=== PATIENT | male | born 1960 | race Caucasian/White ===

== ENCOUNTER → 2016-10-05 | Day surgery (SDC) | payer MEDICARE ==
[~2016-10-05] VITALS: Ht 172.7 cm; Wt 95.3 kg
[~2016-10-05] MED LIST: /LANS30GR; /LANS30GR OR; ACET-71 PO; ALEVE; ALEVE OR; BUPIVACAINE HCL 0.25% 10 ML VIAL As Ordered ONE; BUPIVACAINE HCL 0.25% 30 ML VIAL As Ordered ONE; DARV100T; DARV100T OR; DESFLURANE 240 ML INHALANT As Ordered ONE; FLECTOR1.3 TOP; GABA300T OR; GLYCOPYRROLATE INJ 0.2 MG/ML 2 ML VIAL As Ordered ONE; KETOROLAC 60 MG/2 ML VIAL (J1885) As Ordered ONE; LIDOCAINE 1% SDV INJ 30 ML VIAL As Ordered ONE; LIDOCAINE 2% INJ 100 MG/5 ML SDV (FOR ANES.) As Ordered ONE; LR 1,000 ML IV SCH; METOCLOPRAMIDE INJ 10MG/2ML VIAL (J2765) As Ordered ONE; METOCLOPRAMIDE INJ 10MG/2ML VIAL (J2765) IV PRN; MIDAZOLAM INJ 2 MG/2 ML VIAL (J2250) As Ordered ONE; NORCO, ANEXSIA 5/325MG TABLET (HYDROcodone/ACETAMINOPHEN) PO PRN; ONDANSETRON 4MG/2ML VIAL (J2405) As Ordered ONE; ONDANSETRON 4MG/2ML VIAL (J2405) IV PRN; PENNSAID DROPS EXT; PERCOCET 5MG/325MG TAB PO PRN; PREV30CA11 PO; PROMETHAZINE INJ 25 MG/ML VIAL (J2550) IV PRN; PROPOFOL 200 MG/20 ML VIAL As Ordered ONE; TRAM100T OR; aleve PO; ePHEDrine SULFATE 25 MG/5 ML(5MG/ML) SYRINGE As Ordered ONE; fentaNYL 100 MCG/2 ML INJECTION (J3010) As Ordered ONE; fentaNYL 100 MCG/2 ML INJECTION (J3010) IV PRN; fentaNYL 250 MCG/5 ML INJECTION (J3010) As Ordered ONE
[2016-10-05 13:45] VITALS: BP 121/80
--- NOTE | 2016-10-05 23:55 | RO ---
DATE OF PROCEDURE: 10/05/2016 PREOPERATIVE DIAGNOSIS: Bilateral recurrent inguinal hernias. POSTOPERATIVE DIAGNOSIS: Bilateral recurrent inguinal hernias. PROCEDURE PERFORMED: Repair of bilateral recurrent inguinal hernias with mesh. SURGEON: Dr. Santiago Pinto SOLDERER TORCH: Brenna Phan ANESTHESIA: General. INDICATIONS FOR PROCEDURE: The patient is a 55-year-old man who had undergone bilateral inguinal hernias as a young child. He has recently noticed a bulge in the right inguinal area. Inspection identified bilateral inguinal hernias with the right larger than the left. He is now for bilateral inguinal herniorrhaphy. DESCRIPTION OF PROCEDURE: The patient was placed supine on the operating table. The lower abdomen had been clipped of hair previously. He was placed under general anesthesia using an LMA. The patient's abdomen, groins and genitalia were prepped and draped in a sterile fashion. Inspection revealed faint bilateral lower abdominal scars consistent with prior inguinal hernia repairs. Attention was turned to the right side first, which had been his symptomatic side. An approximately 8-10 cm oblique skin incision was made in the right lower quadrant overlying the inguinal canal. The incision was deepened through the subcutaneous tissues with care to ensure hemostasis with the cautery. The external oblique aponeurosis was identified and was opened in the direction of its fibers. A few permanent sutures were identified in the external oblique near the external ring. The spermatic cord was isolated at the pubic tubercle and elevated with a [place] drain. The patient was found to have a moderate-sized direct hernia in the lateral aspect of the inguinal floor. This was dissected free from the overlying spermatic cord. The hernia was reduced and several sutures of #2-0 Ethibond were placed to close the defect in the inguinal floor and maintain reduction of the hernia. A 6 x 11 cm piece of Ultrapro mesh was then selected. This was trimmed to fit the inguinal floor. The mesh was sutured along its lateral border to the shelving edge of the inguinal ligament using a #3-0 Prolene. The medial portion of the mesh was tacked down with multiple interrupted simple sutures of #3-0 Vicryl. The tails of the mesh were overlapped lateral to the spermatic cord also using #3-0 Vicryl. This appeared to give a nice reconstruction of the inguinal floor. Approximately 10 mL of 0.25% Marcaine were infiltrated into the inguinal floor. The external oblique was closed with a running suture of #0 Vicryl. Another 10 mL of 0.25% Marcaine were infiltrated into the subcutaneous tissues along the incision. The subcutaneous tissues were closed with chromic and the skin edges with a running subcuticular #4-0 Vicryl. Attention was then turned to the left side. A mirror image incision was made. The external oblique was opened. The patient was noted again to have a small direct hernia without evidence of an indirect hernia. The inguinal floor was closed with #2-0 Vicryl and a piece of 6 x 11 cm Ultrapro was used to reconstruct the inguinal floor as noted on the right. Marcaine was infiltrated as on the right and the external oblique was closed with a running #0 Vicryl. Additional Marcaine was infiltrated into the subcutaneous tissues, and the wound was closed with buried chromic and a running subcuticular Vicryl. Steri-Strips were applied to both incisions. The patient tolerated the procedure well without apparent complication. The patient was awakened in the operating room and extubated and moved to the recovery room in stable condition. NETO
== END | disposition home or self-care (01) ==
LOC: M SDC 07:02
PROVIDERS: ATTEND Surgery
DX: K40.21 Bilateral inguinal hernia, without obstruction or gangrene, recurrent (principal); K21.9 Gastro-esophageal reflux disease without esophagitis; K57.32 Diverticulitis of large intestine without perforation or abscess without bleeding; Z79.899 Other long term (current) drug therapy
CPT/HCPCS: 49520; C1781; J1885; J2250; J2405; J2765; J3010

== ENCOUNTER → 2017-01-25 | Outpatient (CLI) | payer MEDICARE ==
[~2017-01-25] MED LIST changes: -ACET-71 PO; +ACET1TAB16 PO; -BUPIVACAINE HCL 0.25% 10 ML VIAL As Ordered ONE; -BUPIVACAINE HCL 0.25% 30 ML VIAL As Ordered ONE; -DESFLURANE 240 ML INHALANT As Ordered ONE; -GLYCOPYRROLATE INJ 0.2 MG/ML 2 ML VIAL As Ordered ONE; -KETOROLAC 60 MG/2 ML VIAL (J1885) As Ordered ONE; -LIDOCAINE 1% SDV INJ 30 ML VIAL As Ordered ONE; -LIDOCAINE 2% INJ 100 MG/5 ML SDV (FOR ANES.) As Ordered ONE; -LR 1,000 ML IV SCH; -METOCLOPRAMIDE INJ 10MG/2ML VIAL (J2765) As Ordered ONE; -METOCLOPRAMIDE INJ 10MG/2ML VIAL (J2765) IV PRN; -MIDAZOLAM INJ 2 MG/2 ML VIAL (J2250) As Ordered ONE; -NORCO, ANEXSIA 5/325MG TABLET (HYDROcodone/ACETAMINOPHEN) PO PRN; -ONDANSETRON 4MG/2ML VIAL (J2405) As Ordered ONE; -ONDANSETRON 4MG/2ML VIAL (J2405) IV PRN; -PERCOCET 5MG/325MG TAB PO PRN; +PREV1CAP PO; -PREV30CA11 PO; -PROMETHAZINE INJ 25 MG/ML VIAL (J2550) IV PRN; -PROPOFOL 200 MG/20 ML VIAL As Ordered ONE; -ePHEDrine SULFATE 25 MG/5 ML(5MG/ML) SYRINGE As Ordered ONE; -fentaNYL 100 MCG/2 ML INJECTION (J3010) As Ordered ONE; -fentaNYL 100 MCG/2 ML INJECTION (J3010) IV PRN; -fentaNYL 250 MCG/5 ML INJECTION (J3010) As Ordered ONE
--- NOTE | 2017-01-25 21:54 | ECGEPIP ---
Stationary ECG Study [facility] Test Date: 2017-01-25 Pat Name: ANASTASIYA SAMUELS Department: Room: - Gender: M Client Liaison: : 1960 Requested By: MACEY Evans Order Number: [id number] Reading MD: Shane Albert Measurements Intervals [place] Rate: 47 P: 49 MD: 167 QRS: -42 QRSD: 101 T: 8 QT: 445 QTc: 394 Interpretive Statements SINUS BRADYCARDIA MARKED LEFT AXIS DEVIATION POSSIBLE RIGHT VENTRICULAR CONDUCTION DELAY ST ELEVATION, CONSIDER SEPTAL INJURY Consider STEMI Comparison tracing not on file Electronically Signed On 01-25-2017 21:54:21 EDT by Shane Albert
== END ==
LOC: M EKG 14:49
PROVIDERS: ATTEND Anesthesiology
DX: Z01.818 Encounter for other preprocedural examination (principal)

== ENCOUNTER → 2017-06-06 | Outpatient (REF) | payer MEDICARE ==
[2017-06-06 11:23] LABS: MEAN CORPUSCULAR HEMOGLOBIN 30.4 pg (27.0-33.0); MEAN CORPUSCULAR HGB CONC 33.8 g/dl (32.0-36.5); MEAN CORPUSCULAR VOLUME 89.9 fl (80.0-96.0); PLATELET COUNT, AUTOMATED 223 10^3/uL (150-450); RED CELL DISTRIBUTION WIDTH 12.4 % (11.5-14.5); WHITE BLOOD COUNT 8.7 10^3/uL (4.0-10.0)
[2017-06-06 11:40] LABS: INR 1.03
== END ==
LOC: M SFHCCLAY 08:28
PROVIDERS: ATTEND Family Medicine
DX: Z01.818 Encounter for other preprocedural examination (principal); H74.22 Discontinuity and dislocation of left ear ossicles
CPT/HCPCS: 85027; 85610; G0463

== ENCOUNTER 2017-06-15 07:20 | Day surgery (SDC) | payer MEDICARE ==
[~2017-06-15] VITALS: Ht 172.7 cm; Wt 95.0 kg
[2017-06-15] MEDS ORDERED: LR 1,000 ML IV ONE (07:30)
[2017-06-15] MEDS ORDERED: PROPOFOL 200 MG/20 ML VIAL As Ordered ONE (08:09)
[2017-06-15] MEDS ORDERED: ROCURONIUM BROMIDE 50 MG/5 ML VIAL As Ordered ONE (08:09)
[2017-06-15] MEDS ORDERED: dexameTHASONE 4 MG/ML 1ML VIAL (J1100) As Ordered ONE (08:09)
[2017-06-15] MEDS ORDERED: ONDANSETRON 4MG/2ML VIAL (J2405) As Ordered ONE (08:09)
[2017-06-15] MEDS ORDERED: LIDOCAINE 2% INJ 100 MG/5 ML SDV (FOR ANES.) As Ordered ONE (08:09)
[2017-06-15] MEDS ORDERED: MIDAZOLAM INJ 2 MG/2 ML VIAL (J2250) As Ordered ONE (08:10)
[2017-06-15] MEDS ORDERED: fentaNYL 250 MCG/5 ML INJECTION (J3010) As Ordered ONE (08:10)
[2017-06-15] MEDS ORDERED: LIDOCAINE W/EPINEPHRINE 1% 20ML VIAL As Ordered ONE (08:53)
[2017-06-15] MEDS ORDERED: CIPRODEX OTIC SUSP 7.5ML As Ordered ONE (08:53)
[2017-06-15] MEDS ORDERED: EPINEPHrine 1MG/ML INJ 30ML MD-VIAL As Ordered ONE (09:54)
[2017-06-15] MEDS ORDERED: GLYCOPYRROLATE INJ 0.2 MG/ML 2 ML VIAL As Ordered ONE (10:10)
[2017-06-15] MEDS ORDERED: NEOSTIGMINE 10 MG/10 ML VIAL (J2710) As Ordered ONE (10:10)
[2017-06-15] MEDS ORDERED: LR 1,000 ML IV SCH ×2 (10:45)
[2017-06-15] MEDS ORDERED: MORPHINE 10 MG/ML 1ML VIAL IV PRN (10:45)
[2017-06-15] MEDS ORDERED: ACETAMINOPH W/CODEINE #3 TAB UD PO PRN (10:45)
[2017-06-15] MEDS ORDERED: fentaNYL 100 MCG/2 ML INJECTION (J3010) IV PRN (10:45)
[2017-06-15] MEDS ORDERED: PERCOCET 5MG/325MG TAB PO PRN (10:45)
[2017-06-15] MEDS ORDERED: ONDANSETRON 4MG/2ML VIAL (J2405) IV PRN (10:45)
[2017-06-15 11:25] VITALS: BP 128/85
--- NOTE | 2017-06-15 11:42 | RO ---
DATE OF PROCEDURE: 06/15/2017 PREOPERATIVE DIAGNOSIS: Left conductive hearing loss. POSTOPERATIVE DIAGNOSIS: Left conductive hearing loss. OPERATIVE PROCEDURE: Left tympanotomy. SURGEON: Marlo Sharif MD CONTENT STRATEGIST: ANESTHESIA: FINDINGS OF SURGERY: There was scarring tissue within the middle ear space, completely obliterating it. There was bone hypertrophy in the middle ear space in the canal. This made any ossicular reconstruction impossible. I did clean out the area a bit. The cartilage was still intact. Under general anesthesia with the patient intubated, the patient was draped in the usual manner. I infiltrated the ear with lidocaine and epinephrine. A made a posterior tympanotomy flap and elevated the tissue. There was a lot of scar tissue within the middle ear space. I debrided some of this tissue. After this, I decided to do nothing further. I put iodoform gauze in the canal. The patient tolerated the procedure well and was extubated and transported to the recovery room in excellent condition.
== END 2017-06-15 11:44 | disposition home or self-care (01) ==
LOC: M SDC 07:20
PROVIDERS: ATTEND Otolaryngology
DX: H90.12 Conductive hearing loss, unilateral, left ear, with unrestricted hearing on the contralateral side (principal); H74.22 Discontinuity and dislocation of left ear ossicles; I10 Essential (primary) hypertension; K21.9 Gastro-esophageal reflux disease without esophagitis; M19.90 Unspecified osteoarthritis, unspecified site; R94.31 Abnormal electrocardiogram [ECG] [EKG]; K58.9 Irritable bowel syndrome, unspecified; I77.810 Thoracic aortic ectasia; M54.9 Dorsalgia, unspecified; J30.9 Allergic rhinitis, unspecified; K57.90 Diverticulosis of intestine, part unspecified, without perforation or abscess without bleeding; Z79.899 Other long term (current) drug therapy; Z91.02 Food additives allergy status
CPT/HCPCS: 69421; J1100; J2250; J2405; J2710; J3010

== ENCOUNTER → 2018-10-20 | Outpatient (REF) | payer MEDICARE | LOC: M LAB REF 12:28 | PROVIDERS: ATTEND Internal Medicine | DX: D37.8 Neoplasm of uncertain behavior of other specified digestive organs (principal) ==

== ENCOUNTER 2018-12-05 06:30 | Day surgery (SDC) | payer MEDICARE ==
[~2018-12-05] VITALS: Ht 172.7 cm; Wt 95.3 kg
[~2018-12-05 06:30] MED LIST changes: +LOSA50TA88 PO; +NS 1,000 ML IV ONE
[2018-12-05] MEDS ORDERED: PROPOFOL 200 MG/20 ML VIAL As Ordered ONE (07:05)
[2018-12-05 09:05] VITALS: BP 118/85
--- NOTE | 2018-12-05 09:41 | ROOR ---
Patient Name: Kevin Post Procedure Date: 12/05/2018 8:18 AM Date of : 1960 Age: 57 Room: [facility] Gender: Male Note Status: Finalized Procedure: Colonoscopy Indications: Screening for colorectal malignant neoplasm, Last colonoscopy: 2008 Providers: Santiago Pinto MD Referring MD: Venita Cosme DO Requesting Provider: Medicines: Monitored Anesthesia Care Complications: No immediate complications. Procedure: Pre-Anesthesia Assessment: - Prior to the procedure, a History and Physical was performed, and patient medications and allergies were reviewed. The patient is competent. The risks and benefits of the procedure and the sedation options and risks were discussed with the patient. All questions were answered and informed consent was obtained. Patient identification and proposed procedure were verified by the physician, the nurse and the anesthesiologist in the procedure room. Mental Status Examination: alert and oriented. Airway Examination: normal oropharyngeal airway and neck mobility. CV Examination: regular rate and rhythm. Prophylactic Antibiotics: The patient does not require prophylactic antibiotics. Prior Anticoagulants: The patient has taken no previous anticoagulant or antiplatelet agents. ASA Grade Assessment: II - A patient with mild systemic disease. After reviewing the risks and benefits, the patient was deemed in satisfactory condition to undergo the procedure. The anesthesia plan was to use monitored anesthesia care (MAC). Immediately prior to administration of medications, the patient was re-assessed for adequacy to receive sedatives. The heart rate, respiratory rate, oxygen saturations, blood pressure, adequacy of pulmonary ventilation, and response to care were monitored throughout the procedure. The physical status of the patient was re-assessed after the procedure. The Colonoscope was introduced through the anus and advanced to the cecum, identified by appendiceal orifice and ileocecal valve. The colonoscopy was performed without difficulty. The patient tolerated the procedure well. The quality of the bowel preparation was excellent. Findings: The perianal and digital rectal examinations were normal. Many small and large-mouthed diverticula were found in the entire colon. There was evidence of a prior end-to-end colo-rectal anastomosis in the recto-sigmoid colon. This was patent and was characterized by healthy appearing mucosa. The anastomosis was traversed. Anastomosis lay at 18 cm from anal verge. Impression: - Diverticulosis in the entire examined colon. - Patent end-to-end colo-rectal anastomosis, characterized by healthy appearing mucosa. - No specimens collected. Recommendation: - Discharge patient to home. - Resume previous diet. - Continue present medications. - Repeat colonoscopy in 10 years for screening purposes. - Return to endoscopist PRN. Santiago Pinto MD Santiago Pinto MD 12/05/2018 9:41:18 AM Electronically signed by Santiago Pinto MD Number of Addenda: 0 Note Initiated On: 12/05/2018 8:18 AM Estimated Blood Loss: Estimated blood loss: none.
== END 2018-12-05 09:45 | disposition home or self-care (01) ==
LOC: M OPP 06:30
PROVIDERS: ATTEND Surgery
DX: K57.30 Diverticulosis of large intestine without perforation or abscess without bleeding (principal); Z98.0 Intestinal bypass and anastomosis status; Z12.11 Encounter for screening for malignant neoplasm of colon

== ENCOUNTER → 2019-07-03 | Outpatient (CLI) | payer MEDICARE ==
[~2019-07-03] MED LIST changes: -NS 1,000 ML IV ONE
[2019-07-03 09:32] LABS: BLOOD UREA NITROGEN 16 MG/DL (7-18); CALCIUM LEVEL 9.6 MG/DL (8.5-10.1); CARBON DIOXIDE LEVEL 28 MEQ/L (21-32); CHLORIDE LEVEL 102 MEQ/L (98-107); CREATININE FOR GFR 1.25 MG/DL (0.70-1.30); GLOMERULAR FILTRATION RATE > 60.0 (>56); GLUCOSE, FASTING 78 MG/DL (70-100); POTASSIUM SERUM 4.6 MEQ/L (3.5-5.1); SODIUM LEVEL 136 MEQ/L (136-145)
== END ==
LOC: M LAB 08:12
PROVIDERS: ATTEND Surgery
DX: D37.1 Neoplasm of uncertain behavior of stomach (principal); D37.5 Neoplasm of uncertain behavior of rectum; D37.8 Neoplasm of uncertain behavior of other specified digestive organs

== ENCOUNTER → 2019-09-25 | Outpatient (REF) | payer MEDICARE ==
[2019-09-26 09:36] LABS: HEPATITIS A ANTIBODY IGM NEGATIVE (NEGATIVE); HEPATITIS B CORE ANTIBODY IGM NEGATIVE (NEGATIVE); HEPATITIS B SURFACE ANTIGEN NEGATIVE (NEGATIVE); HEPATITIS C VIRUS ABY INDEX 0.1 INDEX (<0.8)
== END ==
LOC: M LAB REF 12:09
PROVIDERS: ATTEND Internal Medicine
DX: Z01.89 Encounter for other specified special examinations (principal); L81.8 Other specified disorders of pigmentation

== ENCOUNTER 2019-12-24 05:56 | Emergency (ER) | payer MEDICARE ==
[~2019-12-24] VITALS: Ht 172.7 cm; Wt 100.0 kg
[2019-12-24] MEDS ORDERED: LIDOCAINE 1% MDV 20ML VIAL INFIL ONE (07:00)
[2019-12-24] MEDS ORDERED: BOOSTRIX/ADACEL VACCINE (DIPHTH/PERTUSS/ACELL/TETANUS) 0.5ML SYR IM ONE (07:00)
[2019-12-24] MEDS ORDERED: KEFL500C17 PO (07:37)
[2019-12-24 07:41] VITALS: BP 144/93
== END 2019-12-24 07:42 | disposition home or self-care (01) ==
LOC: M ED 05:56
DX: L98.9 Disorder of the skin and subcutaneous tissue, unspecified (principal); I10 Essential (primary) hypertension; Z91.048 Other nonmedicinal substance allergy status

== ENCOUNTER → 2020-01-10 | Outpatient (CLI) | payer MEDICARE ==
[~2020-01-10] MED LIST changes: +HYDR12CA PO; +KEFL500C17 PO; +LANS15CA23 PO
[2020-01-10 14:03] LABS: BLOOD UREA NITROGEN 21 MG/DL (7-18); CREATININE FOR GFR 1.27 MG/DL (0.70-1.30); GLOMERULAR FILTRATION RATE > 60.0 (>56)
== END ==
LOC: M LAB 12:47
PROVIDERS: ATTEND Physician Assistant Medical
DX: S61.021A Laceration with foreign body of right thumb without damage to nail, initial encounter (principal); X58.XXXA Exposure to other specified factors, initial encounter; Y92.89 Other specified places as the place of occurrence of the external cause

== ENCOUNTER → 2020-01-31 | Outpatient (CLI) | payer MEDICARE ==
--- NOTE | 2020-03-21 10:36 | REP ---
ULTRASOUND OF THE RIGHT THUMB FOR FOREIGN BODY Delay in reporting results from malfunction of the hospital computer system as the result of a malware attack. This study is performed for a right thumb laceration with possible foreign body. FINDINGS: By ultrasound, there is a linear echogenic focus within the subcutaneous tissues of the right thumb measuring 2.4 x 5.1 x 0.8 mm compatible with a foreign body. Images with color Doppler demonstrate no hyperemia surrounding this foreign body at the time of scanning. There is a technology sales representative image of the left thumb demonstrating no foreign body. IMPRESSION: Linear subcutaneous foreign body as described. MTDD
== END ==
LOC: M WHC 11:21
PROVIDERS: ATTEND Physician Assistant Medical
DX: S61.021A Laceration with foreign body of right thumb without damage to nail, initial encounter (principal); X58.XXXA Exposure to other specified factors, initial encounter; Y92.89 Other specified places as the place of occurrence of the external cause; Y93.9 Activity, unspecified; Y99.9 Unspecified external cause status; M79.642 Pain in left hand

== ENCOUNTER → 2020-03-04 | Outpatient (CLI) | payer MEDICARE ==
--- NOTE | 2020-03-25 12:06 | ECGEPIP ---
[facility] Test Date: 2020-03-04 Pat Name: ANASTASIYA SAMUELS Department: Room: - Gender: Male Director Physical Therapy: CARYN : 1960 Requested By: Jaguar Olson Order Number: [id number] Reading MD: Shane Mcginnis Measurements Intervals [place] Rate: 78 P: 53 AR: 177 QRS: -68 QRSD: 92 T: 29 QT: 380 QTc: 434 Interpretive Statements SINUS RHYTHM MARKED LEFT AXIS DEVIATION PATTERN CONSISTENT WITH PULMONARY DISEASE ABNORMAL ECG SEE SCANNED DOWNTIME REPORT
== END ==
LOC: M EKG 13:23
PROVIDERS: ATTEND Orthopaedic Surgery
DX: Z01.818 Encounter for other preprocedural examination (principal)

== ENCOUNTER → 2020-03-06 | Outpatient (CLI) | payer MEDICARE | LOC: M LABSMTC 12:47 | PROVIDERS: ATTEND Orthopaedic Surgery | DX: Z20.828 Contact with and (suspected) exposure to other viral communicable diseases (principal) ==

== ENCOUNTER 2020-05-08 14:28 | Observation (INO) | payer MEDICARE ==
[~2020-05-08] VITALS: Ht 175.3 cm; Wt 100.6 kg
[~2020-05-08 14:28] MED LIST changes: -HYDR12CA PO; -LANS15CA23 PO
[2020-05-08] MEDS ORDERED: ASPIRIN 81 MG CHEW TABLET PO ONE (15:00)
[2020-05-08] MEDS: NITROGLYCERIN 0.4 MG SUBL TABLET SL PRN ×2 (15:05→15:10)
--- NOTE | 2020-05-08 15:20 | REP ---
INDICATION: CHEST PAIN. COMPARISON: Comparison study September 28, 2007. TECHNIQUE: Portable sitting AP radiograph. FINDINGS: Monitoring electrodes are seen. The lungs are well inflated and clear. The pleural angles are sharp. Heart size is normal. No significant bony abnormality. Pulmonary vasculature is not increased. IMPRESSION: Negative portable chest x-ray. <Electronically signed by Vasu Murphy > 05/08/20 [id number]
[2020-05-08] MEDS ORDERED: NS 1,000 ML IV ONE (15:30)
[2020-05-08 16:24] LABS: BASO # 0.1 10^3/uL (0.0-0.2); BASO % 0.7 % (0.0-1.0); EOS # 0.2 10^3/uL (0.0-0.5); EOS % 1.1 % (0.0-3.0); HEMATOCRIT 50.6 % (42.0-52.0); HEMOGLOBIN 16.5 g/dl (13.5-17.5); LYMPH # 1.8 10^3/uL (1.5-5.0); LYMPH % 10.4 % (24.0-44.0); MEAN CORPUSCULAR HEMOGLOBIN 29.6 pg (27.0-33.0); MEAN CORPUSCULAR HGB CONC 32.6 g/dl (32.0-36.5); MEAN CORPUSCULAR VOLUME 90.7 fl (80.0-96.0); MONO # 1.6 10^3/uL (0.0-0.8); MONO % 9.1 % (0.0-5.0); NEUTROPHILS # 13.1 10^3/uL (1.5-8.5); NEUTROPHILS % 74.5 % (36.0-66.0); PLATELET COUNT, AUTOMATED 215 10^3/uL (150-450); RED BLOOD COUNT 5.58 10^6/uL (4.30-6.10); WHITE BLOOD COUNT 17.6 10^3/uL (4.0-10.0)
[2020-05-08 16:39] LABS: PROTHROMBIN TIME 13.4 SECONDS (12.5-14.3)
[2020-05-08 16:42] LABS: ALBUMIN 4.4 GM/DL (3.2-5.2); BILIRUBIN,DIRECT 0.2 MG/DL (0.0-0.2); BILIRUBIN,TOTAL 0.9 MG/DL (0.2-1.0); THYROID STIMULATING HORMONE 0.876 uIU/ML (0.358-3.740); TOTAL PROTEIN 7.8 GM/DL (6.4-8.2)
[2020-05-08] MEDS: MORPHINE 2 MG/ML 1ML VIAL (J2270) IV PRN ×2 (17:11→17:35)
[2020-05-08] MEDS ORDERED: GI COCKTAIL 50ML BTL(HYOSCYAMINE/MAALOX/LIDOCAINE VISCOUS)(1:3:1) PO ONE (17:30)
--- NOTE | 2020-05-08 18:15 | REPVR ---
PROCEDURE INFORMATION: Exam: CT Abdomen And Pelvis Without Contrast Exam date and time: 05/08/2020 5:48 PM Age: 59 years old Clinical indication: Abdominal pain; Additional info: Abd pain TECHNIQUE: Imaging protocol: Computed tomography of the abdomen and pelvis without contrast. Radiation optimization: All CT scans at this facility use at least one of these dose optimization techniques: automated exposure control; mA and/or kV adjustment per patient size (includes targeted exams where dose is matched to clinical indication); or iterative reconstruction. COMPARISON: No relevant prior studies available. FINDINGS: Limitations: Evaluation is somewhat limited by lack of IV contrast. Lungs: The visualized lung bases demonstrate mild dependent atelectasis and small blebs and bullae. Liver: The liver is fatty in density. It appears otherwise grossly unremarkable. Gallbladder and bile ducts: No gallstones are evident, but ultrasound would be more sensitive. No gross biliary ductal dilatation. Pancreas: Grossly unremarkable. Spleen: Grossly unremarkable. Adrenal glands: Normal. No mass. Kidneys and ureters: Grossly unremarkable. No hydronephrosis or renal or ureteral calculus. Stomach and bowel: The unopacified small bowel is not significantly distended to suggest obstruction. Mild diverticulosis is present about much of the large bowel, without evidence for diverticulitis. There is a surgical anastomosis along the sigmoid colon. Appendix: The appendix is not identified, but there are no inflammatory changes in its expected region. Intraperitoneal space: No free air or significant free fluid. Vasculature: Coronary artery calcifications are noted. The abdominal aorta is nonaneurysmal. Atherosclerotic vascular calcifications are noted. Lymph nodes: No gross pathologic lymphadenopathy. Urinary bladder: The nondistended urinary bladder may be mildly thick walled. Reproductive: The prostate is mildly enlarged, measuring 4.2 x 4.2 cm, and contains a small calcification. Bones/joints: Degenerative changes involve the spine and hips. Soft tissues: Unremarkable. IMPRESSION: 1. No hydronephrosis or renal or ureteral calculus. 2. Question mild wall thickening of the nondistended urinary bladder. Correlate as to any potential cystitis. This could also relate to chronic obstruction from the prostate, which is mildly enlarged. 3. Mild colonic diverticulosis without evidence for diverticulitis. 4. Fatty liver. COMMENTS: Depending on suspected etiology of symptoms, consider a targeted ultrasound or contrast enhanced exam. Electronically signed by: Arsh Heath On 05/08/2020 18:15:44 PM
[2020-05-08] MEDS ORDERED: SUCRALFATE SUSP 1GM/10ML UD PO ONE (19:00)
[2020-05-08] MEDS ORDERED: LANS15CA23 PO (19:30)
[2020-05-08] MEDS ORDERED: HEPARIN SOD (PORCINE) 5000UNITS/ML 1ML VIAL/SYRINGE SC SCH (21:00)
[2020-05-08] MEDS ORDERED: ACETAMINOPHEN TAB 650MG DOSE (2X325MG) PO PRN (21:00)
[2020-05-08] MEDS ORDERED: MOM 30ML SUSPENSION UDC PO PRN (21:00)
--- NOTE | 2020-05-08 21:20 | HPEPDOC ---
[facility] Medical History & Physical Date of Admission May 08, 2020 Date of Service: May 08, 2020 History and Physical CHIEF COMPLAINT: Chest pain HISTORY OF PRESENT ILLNESS: 59-year-old male past medical history of hypertension presents to ED after experiencing sudden onset and achy persistent chest pain radiating to both arms and upper abdomen. Rates the pain as10/10 initially down to 8 out of 10 with morphine and has lasted for the past 3 hours. Chest pain is better but has not resolved. Patient was working in his garage lifting heavy weights when the pain started. Says the pain does not change with position or with changes in respiration but is reproducible when he presses on his chest. Says he has not experienced pain like this before. He tried hydrocodone at home which did not help. He was also given nitroglycerin sublingually which did not help. He was given morphine 2 doses which significantly improved the pain. States the onset of his chest pain was associated with one episode of nausea and vomiting which has now resolved. [place] criteria: Pain is constant and not relieved by rest. Pain is not impr karely with nitroglycerin. Pain is not exertional. Pain is substernal. In the ED patient was found to have an elevated white blood cell count. He denies any cough or shortness of breath or sputum production. He denies any fevers chills or malaise. He denies any dysuria. PAST MEDICAL HISTORY: Hypertension on losartan PAST SURGICAL HISTORY: Right shoulder and right knee surgical repair SOCIAL HISTORY: Drinks alcohol socially every few weeks with friends Denies tobacco use Denies illicit drug use FAMILY HISTORY: Father had a history of coronary artery disease and possibly bypass surgery but patient is unsure. Father also had lung problems. Mother had history of COPD ALLERGIES: Please see below. REVIEW OF SYSTEMS: Constitutional: No sweating or weight loss Eyes: No eye pain or acute blurred vision HENT: No complaints of headache Cadiovascular: Per HPI Pulm: No SOB or cough Gastrointestinal: no abdominal pain. Did have an episode of nausea and vomiting one time with the onset of his chest pain. Genitourinary: No dysuria or hematuria Musculoskeletal: No back pain or joint pain Skin: No rash or jaundice Neurological: No weakness. HOME MEDICATIONS: Please see below. PHYSICAL EXAMINATION: Constitutional: Awake and alert, in no apparent distress ENT: Sclera are clear. Mucosa is moist. Respiratory: Lungs CTA bilaterally. No respiratory distress. No use of accessory muscles. Cardiovascular: RRR S1 and S2 are normal, no murmur Gastrointestinal: Abdomen is soft, non distended, non tender, BS present. Musculoskeletal: No edema. No joint deformities. RUE 5/5, LUE 5/5, BLE 5/5 Neurologic: No focal neurological deficit. Mental Status: A&O x3, normal affect Skin: Warm, dry, many tattoos on arms and chest. LABORATORY DATA: See below. IMAGING: Reviewed see chart. MICROBIOLOGY: Please see below. ASSESSMENT/PLAN 59-year-old male past medical history of hypertension presents with reducible chest pain relating heavy lifting. Admitted for observation to rule out ACS. First 2 troponins negative. Patient was admitted at this time to rule out ACS however his third troponin was 1.26 and forth 5.7. This prompted me to attempt to transfer the patient to obtain a cardiac cath given the rising troponins and persistent chest pain. Patient was started on a heparin drip and beta guerline. Calls were made to [facility], [facility], [facility], [facility], [facility], [facility] and all of them did not have bed availability. [facility] was called which did have bed availability and patient was airlifted to [facility]. Endorsement was given to Dr. Colon. I spoke to the patient and discussed the plan he was in agreement and understands the need for transfer and urgency involved. # NSTEMI: Admitted to rule out ACS. Tele monitoring. First 2 trops negative. EKGs reviewed. Fu third trop & EKG. A1C, lipid panel. a1cd. Initially recommended FU with PCP to obtain OP stress test: Risk factors, male, FHx of CAD in dad. However troponins were rising and patient was transferred to [facility] for cardiac cath. # Uncontrolled HTN: Continue home Losartan. Added HCTZ. Monitor and titrate. # Leukocytosis: 17.6 on admission. Repeat CBC wbc 13. Fu UA CT showed potential cystitis. Afebrile, denies dysuria. Hold off on ABx until after UA is back. CXR ok. # DVT prophylaxis: Heparin A Yousef Hospitalist Vital Signs Vital Signs Date Time Temp Pulse Resp B/P (MAP) Pulse Ox O2 Delivery O2 Flow Rate FiO2 05/08/20 19:01 75 18 159/102 (121) 94 Room Air 05/08/20 17:06 97.0 Laboratory Data Labs 24H Laboratory Tests 2 05/08/20 14:57: POC Glucose (Misc Panel) 124H, POC Sodium (Misc Panel) 140, POC Potassium (Misc Panel) 4.1, POC Chloride (Misc Panel) 105, POC Total CO2 (Misc Panel) 23.0, POC Blood Urea Nitrogen (Misc Panel 22, POC Ionized Calcium (Misc Panel) 4.9, POC Creatinine (Misc Panel) 2.0H, POC Hematocrit (Misc Panel) 51.0 05/08/20 14:58: Immature Granulocyte % (Auto) 4.2H, Neutrophils (%) (Auto) 74.5H, Lymphocytes (%) (Auto) 10.4L, Monocytes (%) (Auto) 9.1H, Eosinophils (%) (Auto) 1.1, Basophils (%) (Auto) 0.7, Neutrophils # (Auto) 13.1H, Lymphocytes # (Auto) 1.8, Monocytes # (Auto) 1.6H, Eosinophils # (Auto) 0.2, Basophils # (Auto) 0.1, Nucleated Red Blood Cells % (auto) 0.0, Prothrombin Time 13.4, Prothromb Time International Ratio 1.00, Total Bilirubin 0.9, Direct Bilirubin 0.2, Aspartate Amino Transf (AST/SGOT) 24, Alanine Aminotransferase (ALT/SGPT) 42, Alkaline Phosphatase 53, KP-Rki-G-Type Natriuretic Peptide 21, Total Protein 7.8, Albumin 4.4, Albumin/Globulin Ratio 1.3, Lipase 150, Thyroid Stimulating Hormone (TSH) 0.876 05/08/20 15:00: POC Troponin I (Misc) 0.00 05/08/20 16:48: POC Troponin I (Misc) 0.00 CBC/BMP Laboratory Tests 05/08/20 14:58 Home Medications Scheduled Lansoprazole (Lansoprazole) 15 Mg Capsule.dr, 15 MG PO DAILY Losartan Potassium (Losartan Potassium) 50 Mg Tablet, 50 MG PO DAILY Allergies Coded Allergies: No Known Drug Allergies (Verified Allergy, Unknown, 05/08/20) A-FIB/CHADSVASC A-FIB History Current/History of A-Fib/PAF?: No ROSAS TREVIÑO MD May 08, 2020 21:20
[2020-05-08 22:15] LABS: HEMATOCRIT 46.2 % (42.0-52.0); HEMOGLOBIN 15.4 g/dl (13.5-17.5); MEAN CORPUSCULAR HEMOGLOBIN 30.5 pg (27.0-33.0); MEAN CORPUSCULAR HGB CONC 33.3 g/dl (32.0-36.5); MEAN CORPUSCULAR VOLUME 91.5 fl (80.0-96.0); PLATELET COUNT, AUTOMATED 182 10^3/uL (150-450); RED BLOOD COUNT 5.05 10^6/uL (4.30-6.10); WHITE BLOOD COUNT 13.1 10^3/uL (4.0-10.0)
[2020-05-08 22:33] LABS: HEMOGLOBIN A1c 6.2 %
[2020-05-08 22:49] LABS: CHOLESTEROL RISK RATIO 4.363 (<5); TROPONIN I 1.26 NG/ML (< 0.10)
--- NOTE | 2020-05-09 02:01 | ECGEPIP ---
[facility] Test Date: 2020-05-08 Pat Name: ANASTASIYA SAMUELS Department: Room: - Gender: Male Heel Seat Filler: jonathon : 1960 Requested By: ROSAS Esqueda Order Number: [id number] Reading MD: Shane Albert Measurements Intervals [place] Rate: 65 P: 55 DC: 180 QRS: -70 QRSD: 101 T: 29 QT: 423 QTc: 443 Interpretive Statements SINUS RHYTHM MARKED LEFT AXIS DEVIATION PATTERN CONSISTENT WITH PULMONARY DISEASE NONSPECIFIC ST ELEVATION Similar to tracing done 1650 on 05/07/20 Electronically Signed on 05-09-2020 2:00:48 EST by Shane Albert
[2020-05-09 03:00] VITALS: BP 166/101
[2020-05-09] MEDS ORDERED: HEPARIN DRIP 25,000 UNITS in IV 1 EA IV SCH (03:24)
[2020-05-09] MEDS ORDERED: HEPARIN SOD (PORCINE) 5000UNITS/ML 1ML VIAL/SYRINGE IV ONE (03:30)
[2020-05-09] MEDS ORDERED: METOPROLOL SUCC *XL* 25MG TAB (TopROL *XL*) PO ONE (03:30)
[2020-05-09 03:35] VITALS: BP 182/106
--- NOTE | 2020-05-09 06:42 | DS.PDOC ---
Discharge Summary General Date of Admission May 08, 2020 at 14:29 Date of Discharge 05/09/2020 Discharge Summary PROCEDURES PERFORMED DURING STAY: [None]. ADMITTING DIAGNOSES: 1. Chest pain DISCHARGE DIAGNOSES: 1. NSTEMI COMPLICATIONS/CHIEF COMPLAINT: Chest Pain. HISTORY OF PRESENT ILLNESS: 59-year-old male past medical history of hypertension presents to ED after experiencing sudden onset and achy persistent chest pain radiating to both arms and upper abdomen. Rates the pain as10/10 initially down to 8 out of 10 with morphine and has lasted for the past 3 hours. Chest pain is better but has not resolved. Patient was working in his garage lifting heavy weights when the pain started. Says the pain does not change with position or with changes in respiration but is reproducible when he presses on his chest. Says he has not experienced pain like this before. He tried hydrocodone at home which did not help. He was also given nitroglycerin sublingually which did not help. He was given morphine 2 doses which significantly improved the pain. States the onset of his chest pain was associated with one episode of nausea and vomiting which has now resolved. Pain is constant and not relieved by rest. Pain is not improved with nitroglycerin. Pain is not exertional. Pain is substernal. In the ED patient was found to have an elevated white blood cell count. He denies any cough or shortness of breath or sputum production. He denies any fevers chills or malaise. He denies any dysuria. HOSPITAL COURSE: 59-year-old male past medical history of hypertension presents with reducible chest pain relating heavy lifting. Admitted for observation to rule out ACS. First 2 troponins negative. Patient was admitted at this time to rule out ACS however his third troponin was 1.26 and forth 5.7. This prompted me to attempt to transfer the patient to obtain a cardiac cath given the rising troponins and persistent chest pain. Patient was started on a heparin drip and beta guerline. Calls were made to [facility], [facility], [facility], [facility], [facility] and all of them did not have bed availability. [facility] was called which did have bed availability and patient was airlifted to [facility]. Endorsement was given to Dr. Colon. I spoke to the patient and discussed the plan he was in agreement and understands the need for transfer and urgency involved. # NSTEMI: Admitted to rule out ACS. Tele monitoring. First 2 trops negative. EKGs reviewed. Fu third trop & EKG. A1C, lipid panel. a1cd. Initially recommended FU with PCP to obtain OP stress test: Risk factors, male, FHx of CAD in dad. However troponins were rising and patient was transferred to [facility] for cardiac cath. # Uncontrolled HTN: Continue home Losartan. Added HCTZ. # Leukocytosis: 17.6 on admission. Repeat CBC wbc 13. Fu UA CT showed potential cystitis. Afebrile, denies dysuria. Hold off on ABx until after UA is back. CXR ok. DISCHARGE MEDICATIONS: Please see below. ALLERGIES: Please see below. PHYSICAL EXAMINATION ON DISCHARGE: VITAL SIGNS: Please see below. Constitutional: Awake and alert, in no apparent distress ENT: Sclera are clear. Mucosa is moist. Respiratory: Lungs CTA bilaterally. No respiratory distress. No use of accessory muscles. Cardiovascular: RRR S1 and S2 are normal, no murmur Gastrointestinal: Abdomen is soft, non distended, non tender, BS present. Musculoskeletal: No edema. No joint deformities. RUE 5/5, LUE 5/5, BLE 5/5 Neurologic: No focal neurological deficit. Mental Status: A&O x3, normal affect Skin: Warm, dry, many tattoos on arms and chest. LABORATORY DATA: Please see below. IMAGING: Negative portable chest x-ray. CT abdo/pelvis: 1. No hydronephrosis or renal or ureteral calculus. 2. Question mild wall thickening of the nondistended urinary bladder. Correlate as to any potential cystitis. This could also relate to chronic obstruction from the prostate, which is mildly enlarged. 3. Mild colonic diverticulosis without evidence for diverticulitis. 4. Fatty liver. PROGNOSIS: fair ACTIVITY: [As tolerated]. DIET: Cardiac diet DISPOSITION: Transferred to [facility] for cardiac cath ITEMS TO FOLLOWUP ON ON OUTPATIENT: 1. Follow-up with cardiology and primary care doctor DISCHARGE CONDITION: [Stable]. TIME SPENT ON DISCHARGE: 100 minutes. Vital Signs/I&Os Vital Signs Date Time Temp Pulse Resp B/P (MAP) Pulse Ox O2 Delivery O2 Flow Rate FiO2 05/09/20 03:35 92 182/106 05/09/20 03:00 16 94 Room Air 05/08/20 17:06 97.0 I&O- Last 24 Hours up to 6 AM 05/09/20 06:00 Intake Total 1000 ml Balance 1000 ml Laboratory Data Labs 24H Laboratory Tests 2 05/08/20 14:57: POC Glucose (Misc Panel) 124H, POC Sodium (Misc Panel) 140, POC Potassium (Misc Panel) 4.1, POC Chloride (Misc Panel) 105, POC Total CO2 (Misc Panel) 23.0, POC Blood Urea Nitrogen (Misc Panel 22, POC Ionized Calcium (Misc Panel) 4.9, POC Creatinine (Misc Panel) 2.0H, POC Hematocrit (Misc Panel) 51.0 05/08/20 14:58: Immature Granulocyte % (Auto) 4.2H, Neutrophils (%) (Auto) 74.5H, Lymphocytes (%) (Auto) 10.4L, Monocytes (%) (Auto) 9.1H, Eosinophils (%) (Auto) 1.1, Basophils (%) (Auto) 0.7, Neutrophils # (Auto) 13.1H, Lymphocytes # (Auto) 1.8, Monocytes # (Auto) 1.6H, Eosinophils # (Auto) 0.2, Basophils # (Auto) 0.1, Nucleated Red Blood Cells % (auto) 0.0, Prothrombin Time 13.4, Prothromb Time International Ratio 1.00, Total Bilirubin 0.9, Direct Bilirubin 0.2, Aspartate Amino Transf (AST/SGOT) 24, Alanine Aminotransferase (ALT/SGPT) 42, Alkaline Phosphatase 53, QX-Cgt-U-Type Natriuretic Peptide 21, Total Protein 7.8, Albumin 4.4, Albumin/Globulin Ratio 1.3, Lipase 150, Thyroid Stimulating Hormone (TSH) 0.876 05/08/20 15:00: POC Troponin I (Misc) 0.00 05/08/20 16:48: POC Troponin I (Misc) 0.00 05/08/20 21:57: Nucleated Red Blood Cells % (auto) 0.0, Estimated Mean Plasma Glucose 131H, Hemoglobin A1c 6.2, Troponin I 1.26H, Triglycerides Level 155H, Total Cholesterol 192, LDL Cholesterol 117H, Non-HDL Cholesterol (LDL + VLDL) 148, Total HDL Cholesterol 44, Cholesterol/HDL Ratio 4.363 05/09/20 01:54: Troponin I 5.76#*H 05/09/20 02:58: Coronavirus (COVID-19)(PCR) NEGATIVE CBC/BMP Laboratory Tests 05/08/20 14:58 05/08/20 21:57 Discharge Medications Scheduled Lansoprazole (Lansoprazole) 15 Mg Capsule.dr, 15 MG PO DAILY, (Reported) Losartan Potassium (Losartan Potassium) 50 Mg Tablet, 50 MG PO DAILY, (Reported) Allergies Coded Allergies: No Known Drug Allergies (Verified Allergy, Unknown, 05/08/20) ROSAS TREVIÑO MD May 09, 2020 06:41
[2020-05-09] MEDS ORDERED: HYDR12CA PO (06:48)
[2020-05-09] MEDS ORDERED: hydroCHLOROthiazide 12.5 MG CAPSULE PO SCH (09:00)
[2020-05-09] MEDS ORDERED: LOSARTAN 50MG TABLET PO SCH (09:00)
--- NOTE | 2020-05-09 09:20 | ECGEPIP ---
[facility] - ED Test Date: 2020-05-08 Pat Name: ANASTASIYA SAMUELS Department: Room: - Gender: Male Manager Social: : 1960 Requested By: Allie Green Order Number: [id number] Reading MD: Allie Green Measurements Intervals [place] Rate: 94 P: 25 [place]: 176 QRS: -70 QRSD: 98 T: 18 QT: 347 QTc: 435 Interpretive Statements SINUS RHYTHM MARKED LEFT AXIS DEVIATION PATTERN CONSISTENT WITH PULMONARY DISEASE ST ELEVATION CONSISTENT WITH INJURY, PERICARDITIS, OR EARLY REPOLARIZATION, C CLINICAL CORRELATION FOR ISCHEMIA Electronically Signed on 05-09-2020 9:20:04 EST by Allie Green
--- NOTE | 2020-05-09 09:23 | ECGEPIP ---
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
--- NOTE | 2020-05-09 09:57 | ECGEPIP ---
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
--- NOTE | 2020-05-09 10:03 | ECGEPIP ---
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
--- NOTE | 2020-05-10 08:07 | ECGEPIP ---
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
== END 2020-05-09 04:04 | disposition short-term general hospital (02) ==
LOC: M ED 14:28 → M ED INP 14:29 → ENRESERV 22:23 → M ED INP 05-09 04:08
PROVIDERS: ADMIT Family Medicine; ATTEND Family Medicine
DX: I21.4 Non-ST elevation (NSTEMI) myocardial infarction (principal); I10 Essential (primary) hypertension; D72.829 Elevated white blood cell count, unspecified; Z79.899 Other long term (current) drug therapy
CPT/HCPCS: 36415; 71045; 74176; 80047; 80061; 80076; 83036; 83690; 83880; 84145; 84443; 84484; 85025; 85027; 85610; 93005; 93041; 94760; 96361; 96374; 96375; 96376; 99285; G0378; J1644; J2270; U0002

== ENCOUNTER → 2020-07-07 | Outpatient (CLI) | payer MEDICARE ==
[~2020-07-07] MED LIST changes: +HYDR12CA PO; +LANS15CA23 PO
[2020-07-07 16:26] LABS: BLOOD UREA NITROGEN 16 MG/DL (7-18); CREATININE FOR GFR 1.17 MG/DL (0.70-1.30); GLOMERULAR FILTRATION RATE > 60.0 (>56)
== END ==
LOC: M LAB 13:07
PROVIDERS: ATTEND Surgery
DX: D37.8 Neoplasm of uncertain behavior of other specified digestive organs (principal); D37.1 Neoplasm of uncertain behavior of stomach; D37.5 Neoplasm of uncertain behavior of rectum

== ENCOUNTER → 2020-09-22 | Outpatient (CLI) | payer MEDICARE ==
--- NOTE | 2020-09-22 13:19 | REP ---
INDICATION: PAIN W/ROM. COMPARISON: None. TECHNIQUE: Five views. FINDINGS: Five views of the left knee demonstrate mild chondrocalcinosis. Joint spaces are preserved. There is mild superior pole patellar spurring consistent with early osteoarthritis. [place] view shows lateral patellar spurring as well.. No other abnormality.. No opaque foreign body noted. IMPRESSION: Chondrocalcinosis and mild patellofemoral osteoarthritic spurring. No acute bony abnormality seen.. <Electronically signed by Vasu Murphy > 09/22/20 [id number]
== END ==
LOC: M RAD 10:55
PROVIDERS: ATTEND Internal Medicine
DX: M11.262 Other chondrocalcinosis, left knee (principal); M17.12 Unilateral primary osteoarthritis, left knee

== ENCOUNTER 2021-05-22 12:13 | Emergency (ER) | payer MEDICARE ==
[~2021-05-22] VITALS: Ht 172.7 cm; Wt 96.5 kg
[~2021-05-22 12:13] MED LIST changes: +LANS-67 PO; -LANS15CA23 PO; +LOSA50TA28 PO; -LOSA50TA88 PO
[2021-05-22 12:18] VITALS: BP 144/95
[2021-05-22 12:48] LABS: BASO # 0.1 10^3/uL (0.0-0.2); BASO % 0.6 % (0.0-1.0); EOS # 0.3 10^3/uL (0.0-0.5); EOS % 3.6 % (0.0-3.0); HEMOGLOBIN 15.8 g/dl (13.5-17.5); LYMPH # 2.3 10^3/uL (1.5-5.0); LYMPH % 27.8 % (24.0-44.0); MEAN CORPUSCULAR HEMOGLOBIN 30.5 pg (27.0-33.0); MEAN CORPUSCULAR HGB CONC 32.9 g/dl (32.0-36.5); MEAN CORPUSCULAR VOLUME 92.7 fl (80.0-96.0); MONO # 0.8 10^3/uL (0.0-0.8); NEUTROPHILS # 4.7 10^3/uL (1.5-8.5); NEUTROPHILS % 56.3 % (36.0-66.0); PLATELET COUNT, AUTOMATED 204 10^3/uL (150-450); RED BLOOD COUNT 5.18 10^6/uL (4.30-6.10); WHITE BLOOD COUNT 8.4 10^3/uL (4.0-10.0)
[2021-05-22 13:09] LABS: BLOOD UREA NITROGEN 21 MG/DL (7-18); CARBON DIOXIDE LEVEL 28 MEQ/L (21-32); CHLORIDE LEVEL 106 MEQ/L (98-107); CREATININE FOR GFR 1.09 MG/DL (0.70-1.30); GLOMERULAR FILTRATION RATE > 60.0 (>49); GLUCOSE, FASTING 90 MG/DL (70-100); POTASSIUM SERUM 4.3 MEQ/L (3.5-5.1); SODIUM LEVEL 140 MEQ/L (136-145)
[2021-05-22 13:15] LABS: CK-MB VALUE MASS 2.4 NG/ML (<3.6); CPK CREATINE PHOSPHOKINASE 178 U/L (39-308); MB/CK RELATIVE INDEX 1.35 (< OR =4); TROPONIN I < 0.02 NG/ML (< 0.10)
== END 2021-05-22 15:03 | disposition left against medical advice (07) ==
LOC: M ED 12:13
DX: Z53.21 Procedure and treatment not carried out due to patient leaving prior to being seen by health care provider (principal)

== ENCOUNTER → 2022-02-19 | Outpatient (REF) | payer MEDICARE ==
[~2022-02-19] MED LIST changes: -ACET1TAB16 PO; +ACET300T48 PO
== END ==
LOC: M LAB REF 16:02
PROVIDERS: ATTEND Internal Medicine
DX: M25.50 Pain in unspecified joint (principal)

== ENCOUNTER → 2023-03-14 | Outpatient (REF) | payer MEDICARE | LOC: M LAB REF 16:50 | PROVIDERS: ATTEND Internal Medicine | DX: R63.4 Abnormal weight loss (principal) ==

== ENCOUNTER → 2023-05-09 | Outpatient (CLI) | payer MEDICARE ==
[~2023-05-09] MED LIST changes: +PROHANCE 279.3MG/ML 15ML VIAL ONE; +PROHANCE 279.3MG/ML 5ML VIAL ONE
== END ==
LOC: M PLAIMG 13:05
PROVIDERS: ATTEND Internal Medicine
DX: K86.2 Cyst of pancreas (principal)
CPT/HCPCS: 74183; A9576

== ENCOUNTER → 2023-10-05 | Outpatient (CLI) | payer MEDICARE ==
[~2023-10-05] MED LIST changes: -PROHANCE 279.3MG/ML 15ML VIAL ONE; -PROHANCE 279.3MG/ML 5ML VIAL ONE
== END ==
LOC: M PLAIMG 08:30
PROVIDERS: ATTEND Internal Medicine
DX: I71.21 Aneurysm of the ascending aorta, without rupture (principal)

== ENCOUNTER → 2023-12-15 | Outpatient (CLI) | payer MEDICARE | LOC: M WUC 13:03 | PROVIDERS: ATTEND Nurse Practitioner Adult Health | DX: M25.521 Pain in right elbow (principal) ==

== ENCOUNTER → 2024-03-30 | Outpatient (REF) | payer MEDICARE | LOC: M LAB REF 11:26 | PROVIDERS: ATTEND Internal Medicine | DX: D37.8 Neoplasm of uncertain behavior of other specified digestive organs (principal); K86.2 Cyst of pancreas ==

== ENCOUNTER → 2024-04-13 | Outpatient (CLI) | payer MEDICARE ==
[~2024-04-13] MED LIST changes: +PROHANCE 279.3MG/ML 15ML VIAL As Ordered ONE; +PROHANCE 279.3MG/ML 5ML VIAL As Ordered ONE
== END ==
LOC: M RAD 14:11
PROVIDERS: ATTEND Internal Medicine
DX: D37.8 Neoplasm of uncertain behavior of other specified digestive organs (principal); K86.2 Cyst of pancreas
CPT/HCPCS: 74183; A9576

== ENCOUNTER 2024-08-04 13:19 | Emergency (ER) | payer MEDICARE ==
[~2024-08-04] VITALS: Ht 172.7 cm; Wt 100.0 kg
[~2024-08-04 13:19] MED LIST changes: -PROHANCE 279.3MG/ML 15ML VIAL As Ordered ONE; -PROHANCE 279.3MG/ML 5ML VIAL As Ordered ONE
[2024-08-04] MEDS ORDERED: ATOR80TA59 (13:33)
[2024-08-04] MEDS ORDERED: METO1TAB87 (13:33)
[2024-08-04] MEDS ORDERED: PRAS10TA2 (13:33)
[2024-08-04 13:52] LABS: BASO # 0.1 10^3/uL (0.0-0.2); BASO % 0.8 % (0.0-1.0); EOS # 0.3 10^3/uL (0.0-0.5); EOS % 3.4 % (0.0-3.0); HEMATOCRIT 48.2 % (42.0-52.0); HEMOGLOBIN 16.4 g/dl (13.5-17.5); LYMPH # 1.8 10^3/uL (1.5-5.0); LYMPH % 22.6 % (24.0-44.0); MEAN CORPUSCULAR HEMOGLOBIN 31.1 pg (27.0-33.0); MEAN CORPUSCULAR VOLUME 91.5 fl (80.0-96.0); MONO # 0.7 10^3/uL (0.0-0.8); MONO % 9.3 % (2.0-8.0); NEUTROPHILS % 62.9 % (36.0-66.0); PLATELET COUNT, AUTOMATED 200 10^3/uL (150-450); RED BLOOD COUNT 5.27 10^6/uL (4.30-6.10)
[2024-08-04 14:20] LABS: BLOOD UREA NITROGEN 17 MG/DL (9-23); CALCIUM LEVEL 9.2 MG/DL (8.3-10.6); CARBON DIOXIDE LEVEL 25 MMOL/L (20-31); CHLORIDE LEVEL 106 MMOL/L (98-107); CK-MB VALUE MASS < 1.0 NG/ML (<3.6); CREATININE FOR GFR 1.12 MG/DL (0.70-1.30); GLOMERULAR FILTRATION RATE > 60.0 (>49); GLUCOSE, FASTING 149 MG/DL (74-106); POTASSIUM SERUM 4.2 MMOL/L (3.5-5.1); SODIUM LEVEL 143 MMOL/L (136-145)
[2024-08-04 14:24] LABS: CPK CREATINE PHOSPHOKINASE 126 U/L (46-171); MB/CK RELATIVE INDEX 0.79 (< OR =4)
[2024-08-04 15:34] LABS: CK-MB VALUE MASS 1.2 NG/ML (<3.6)
[2024-08-04 17:30] VITALS: BP 145/103; O2SAT 93
[2024-08-04 17:36] VITALS: TEMP 96.6
== END 2024-08-04 17:43 | disposition home or self-care (01) ==
LOC: M ED 13:19
DX: R07.9 Chest pain, unspecified (principal); I44.4 Left anterior fascicular block; I10 Essential (primary) hypertension; Z79.02 Long term (current) use of antithrombotics/antiplatelets; Z79.899 Other long term (current) drug therapy

== ENCOUNTER 2025-01-26 14:39 | Emergency (ER) | payer MEDICARE ==
[~2025-01-26] VITALS: Ht 172.7 cm; Wt 98.2 kg
[~2025-01-26 14:39] MED LIST changes: +ATOR80TA59 PO; +HYDR12.510 PO; -HYDR12CA PO; +METO1TAB87 PO; +PRAS10TA2 PO
[2025-01-26] MEDS: ASPIRIN 81 MG CHEWABLE TABLET PO ONE (15:13)
[2025-01-26 15:18] LABS: BASO # 0.1 10^3/uL (0.0-0.2); BASO % 0.6 % (0.0-1.0); EOS # 0.2 10^3/uL (0.0-0.5); EOS % 2.2 % (0.0-3.0); LYMPH # 2.3 10^3/uL (1.5-5.0); LYMPH % 23.9 % (24.0-44.0); MONO # 0.9 10^3/uL (0.0-0.8); MONO % 9.1 % (2.0-8.0); NEUTROPHILS # 6.1 10^3/uL (1.5-8.5); NEUTROPHILS % 63.4 % (36.0-66.0); PLATELET COUNT, AUTOMATED 202 10^3/uL (150-450)
[2025-01-26 15:36] LABS: INR 0.96
[2025-01-26 15:50] LABS: CK-MB VALUE MASS 2.1 NG/ML (<3.6)
[2025-01-26 15:52] LABS: CALCIUM LEVEL 9.0 MG/DL (8.3-10.6); CARBON DIOXIDE LEVEL 26 MMOL/L (20-31); CHLORIDE LEVEL 104 MMOL/L (98-107); CREATININE FOR GFR 1.30 MG/DL (0.70-1.30); GLOMERULAR FILTRATION RATE 61.4 (>49); MAGNESIUM LEVEL 2.0 MG/DL (1.8-2.4); POTASSIUM SERUM 4.8 MMOL/L (3.5-5.1); SODIUM LEVEL 142 MMOL/L (136-145)
[2025-01-26 15:54] LABS: FREE T4 1.00 NG/DL (0.89-1.76)
[2025-01-26 16:00] LABS: CPK CREATINE PHOSPHOKINASE 129 U/L (46-171); MB/CK RELATIVE INDEX 1.62 (< OR =4)
[2025-01-26 16:32] LABS: CK-MB VALUE MASS 1.5 NG/ML (<3.6)
[2025-01-26 16:50] LABS: CPK CREATINE PHOSPHOKINASE 124.0 U/L (46-171); MB/CK RELATIVE INDEX 1.2 (< OR =4)
[2025-01-26 18:19] LABS: CK-MB VALUE MASS 1.4 NG/ML (<3.6); CPK CREATINE PHOSPHOKINASE 111.0 U/L (46-171); MB/CK RELATIVE INDEX 1.26 (< OR =4)
[2025-01-26] MEDS: SUCRALFATE SUSP 1GM/10ML UD PO ONE (19:15)
[2025-01-26] MEDS: LIDOCAINE VISCOUS 2% SOLN 15 ML UDC MT ONE (19:15)
[2025-01-26] MEDS: MAALOX 30 ML SUSP *UDC PO ONE (19:15)
[2025-01-26 19:20] VITALS: BP 112/78; TEMP 96; O2SAT 96
== END 2025-01-26 19:25 | disposition home or self-care (01) ==
LOC: M ED 14:39 → CANBEDREQ 15:28 → M ED 19:25
DX: R07.9 Chest pain, unspecified (principal); I47.10 Supraventricular tachycardia, unspecified; I25.2 Old myocardial infarction; I10 Essential (primary) hypertension; E78.5 Hyperlipidemia, unspecified; Z86.79 Personal history of other diseases of the circulatory system; Z79.02 Long term (current) use of antithrombotics/antiplatelets; Z79.899 Other long term (current) drug therapy

== ENCOUNTER → 2025-03-12 | Outpatient (CLI) | payer MEDICARE | LOC: M WUC 10:32 | PROVIDERS: ATTEND Internal Medicine | DX: M25.612 Stiffness of left shoulder, not elsewhere classified (principal) ==

== ENCOUNTER → 2025-04-05 | Outpatient (CLI) | payer MEDICARE ==
[~2025-04-05] MED LIST changes: +PROHANCE 279.3MG/ML 15ML VIAL ONE; +PROHANCE 279.3MG/ML 5ML VIAL ONE
== END ==
LOC: M PLAIMG 08:14
PROVIDERS: ATTEND Internal Medicine
DX: K86.2 Cyst of pancreas (principal)
CPT/HCPCS: 74183; A9576